=== PATIENT | female | born 1990 | race African-American/Black ===

== ENCOUNTER 2016-06-29 13:26 | Emergency (ER) | payer OTHER ==
[~2016-06-29] VITALS: Ht 165.1 cm; Wt 77.5 kg
[2016-06-29 13:53] VITALS: BP 105/65
[2016-06-29] MEDS ORDERED: KETOROLAC 60MG/2ML VIAL IM ONE (14:15)
== END 2016-06-29 14:45 | disposition home or self-care (01) ==
LOC: ER 13:35
DX: K08.89 Other specified disorders of teeth and supporting structures (principal); F17.200 Nicotine dependence, unspecified, uncomplicated
CPT/HCPCS: 81025; 96372; 99283; J1885

== ENCOUNTER 2017-05-24 15:52 | Emergency (ER) | payer OTHER ==
[~2017-05-24] VITALS: Ht 170.2 cm; Wt 87.0 kg
[2017-05-24 16:39] VITALS: BP 124/63
[2017-05-24] MEDS ORDERED: IBUP-2028 PO (16:45)
== END 2017-05-24 20:31 | disposition home or self-care (01) ==
LOC: ER 19:04
DX: K04.7 Periapical abscess without sinus (principal); F17.200 Nicotine dependence, unspecified, uncomplicated
CPT/HCPCS: 99285; Z7610

== ENCOUNTER 2022-01-08 14:16 | Emergency (ER) | payer OTHER ==
[~2022-01-08] VITALS: Ht 170.2 cm; Wt 90.0 kg
[~2022-01-08 14:16] MED LIST: IBUP-2028 PO
[2022-01-08 14:21] VITALS: BP 121/73
== END 2022-01-08 20:37 | disposition left against medical advice (07) ==
LOC: ER 14:16
DX: Z53.21 Procedure and treatment not carried out due to patient leaving prior to being seen by health care provider (principal)